=== PATIENT | female | born 1995 | race Caucasian/White ===

== ENCOUNTER 2017-12-28 20:49 | Emergency (ER) | payer OTHER ==
[2017-12-28 20:56] VITALS: BP 132/85
--- NOTE | 2017-12-28 21:05 | EDPHY ---
H & P Stated Complaint: L ANKLE WOUND/POSS INFX Time Seen by Provider: 12/28/17 20:58 HPI/ROS: HPI: This is a 22-year-old female who presents with Chief Complaint: L ANKLE WOUND/POSS INFX Location: Left ankle Quality: Redness Duration: 5 days Signs and Symptoms: No bleeding, no radiation, no numbness, no weakness, no tingling, no incontinence, no decreased range of motion, no swelling, no pain, no fever Timing: Acute Severity: Mild Context: Patient reports that she is originally from [facility] presents with complaints of a 5 day area on her left lateral ankle. It started as a small scabbed area and now within the last 2 days there has been surrounding redness. Denies any warmth/discharge/tenderness. She does not remember an insect biting her. Her boyfriend was treated in this hospital for MRSA infection. She has only been exposed to him for the last 4 days. Denies any joint pain/ fever/aches/neck stiffness. Modifying Factors: None Comment: ROS: see HPI Constitutional: No fever, no chills, no weight loss Eyes: No blurred vision Respiratory: No shortness of breath, no cough Cardiovascular: No chest pain Gastrointestinal: No nausea, no vomiting no diarrhea Genitourinary: No dysuria Extremities: No myalgias Neurologic: No weakness, no numbness Skin: No rashes Hematologic: No bruising, no bleeding MEDICAL/SURGICAL/SOCIAL HISTORY: Medical history: SVT/CORRECTIVE SX Surgical history: L HAND SX Social history: Employed. CONSTITUTIONAL: Very pleasant well-appearing young adult white female, awake and alert, no obvious distress HEENT: Atraumatic and normocephalic, PERRL, EOMI. Nares patent; no rhinorrhea; no nasal mucosal edema. Tympanic membranes clear. Oropharynx clear, no exudate and moist pink mucosa. Airway patent. No lymphadenopathy. No meningismus. Cardiovascular: Normal S1/S2, regular rate, regular rhythm, without murmur rub or gallop. PULMONARY/CHEST: Symmetrical and nontender. Clear to auscultation bilaterally. Good air movement. No accessory muscle usage. ABDOMEN: Soft, nondistended, nontender, no rebound, no guarding, no peritoneal signs, no masses or organomegaly. No CVAT. EXTREMITIES: 2/2 pulses, strength 5/5, no deformities, no clubbing, no cyanosis or edema. NEUROLOGICAL: no focal neuro deficits. GCS 15. SKIN: Warm and dry, left ankle shows 1 in annular mild pink area; no fluctuant; no bite moris; no puncture site; no vesicle;. no rash. Good capillary refill. Source: Patient Exam Limitations: No limitations - Personal History LMP (Females 10-55): Irregular Current Tetanus Diphtheria and Acellular Pertussis (TDAP): Yes - Medical/Surgical History Hx Asthma: No Hx Chronic Respiratory Disease: No Hx Diabetes: No Hx Cardiac Disease: No Hx Renal Disease: No Hx Cirrhosis: No Hx Alcoholism: No Hx HIV/AIDS: No Hx Splenectomy or Spleen Trauma: No Other PMH: SVT/CORRECTIVE SX, L HAND SX - Social History Smoking Status: Never smoked Constitutional: Initial Vital Signs Temperature (C) 36.5 C 12/28/17 20:54 Heart Rate 71 12/28/17 20:54 Respiratory Rate 16 12/28/17 20:54 Blood Pressure 132/85 H 12/28/17 20:54 O2 Sat (%) 98 12/28/17 20:54 O2 Delivery Mode Room Air Allergies/Adverse Reactions: No Known Allergies Allergy (Unverified 12/28/17 20:52) Home Medications: Medication Instructions Recorded Mupirocin 2% [Bactroban 2%] 1 yue TP BID #22 g 12/28/17 Medical Decision Making ED Course/Re-evaluation: Patient has a risk factor of her boyfriend who had MRSA infection Patient is reluctant to take Keflex and Bactrim orally. She is requesting a trial Bactroban topically to the area 1st. No signs of neurovascular compromise/tenting of skin/compartment syndrome/ extremities and joints examined above and below area of concern and are neurovascularly intact. This patient was seen under the supervision of my secondary supervising physician. I evaluated care for this patient independently. Differential Diagnosis: Differential diagnosis includes but is not limited to infected insect bite, MRSA infection, cellulitis, abscess, necrotizing fasciitis. Departure - Departure Disposition: Home, Routine, Self-Care Clinical Impression: Infected lesion of skin Condition: Good Instructions: MRSA (Methicillin-Resistant Staphylococcus Aureus) (ED), Insect Bite or Sting (ED) Additional Instructions: Wash the site daily with mild soap and water; then pat dry. Apply Bactroban twice daily for the next 7 days. Keep the area covered until fully healed. Take Tylenol 650 mg every 4 hours and/or Ibuprofen 600 mg every 8 hours with food as needed for pain. If no improvement in the area after medication for 7 days, return to your primary care provider as you may need oral antibiotics at that time. Referrals: PCP Not In,Dictionary [Medical Doctor] - As per Instructions Prescriptions: Mupirocin 2% [Bactroban 2%] 1 yue TP BID #22 g
== END 2017-12-28 21:20 | disposition home or self-care (01) ==
DX: L08.9 Local infection of the skin and subcutaneous tissue, unspecified (principal)